=== PATIENT | male | born 1995 | race Caucasian/White ===

== ENCOUNTER 2016-05-02 19:25 | Emergency (ER) | payer BC ==
[~2016-05-02] VITALS: Ht 185.4 cm; Wt 90.9 kg
[~2016-05-02 19:25] MED LIST: ZOFRAN ODT4 MG PO
[2016-05-02 19:27] VITALS: TEMP 98.7
[2016-05-02] MEDS ORDERED: HUMALOG100 U/ML SQ (19:35)
[2016-05-02 20:29] LABS: BASO % 0.1 % (0.0-2.0); GRAN # 9.6 (1.4-6.5); GRAN % 89.1 % (42.2-75.2); HEMATOCRIT 47.3 % (42.0-52.0); HEMOGLOBIN 16.5 g/dl (13.5-18.0); LYMPH # 0.7 (1.2-3.4); LYMPH % 6.8 % (20.0-51.0); MEAN CELL VOLUME 90 fl (80.0-100.0); MEAN CORPUSCULAR HEMOGLOBIN 32 pg (27.0-31.0); MEAN CORPUSCULAR HGB CONC 35 g/dl (33.0-37.0); MEAN PLATELET VOLUME 10.8 fl (7.4-10.4); MONO # 0.4 (0.1-0.6); MONO % 3.7 % (1.7-9.3); PLATELET COUNT 189 K/mm3 (130-400); RED BLOOD COUNT 5.24 M/mm3 (4.20-5.60); REDCELL DISTRIBUTION WIDTH-CV 11.9 % (11.5-14.5); WHITE BLOOD COUNT 10.8 K/mm3 (4.8-10.8)
[2016-05-02 20:39] LABS: ADJUSTED CALCIUM 8.6 mg/dL (8.4-10.2); ALBUMIN 4.9 gm/dL (3.5-5.0); BILIRUBIN,TOTAL 0.8 mg/dL (0.0-1.0); CALCIUM 9.3 mg/dL (8.4-10.2); CREATININE, serum 0.95 mg/dL (0.66-1.25); MAGNESIUM 2.1 mg/dL (1.6-2.3); PHOSPHOROUS 4.5 mg/dL (2.5-4.5); POTASSIUM 4.1 mmol/L (3.4-5.0); TOTAL PROTEIN 8.4 gm/dL (6.4-8.2)
[2016-05-02 21:43] VITALS: BP 138/78; PULSE 80
== END 2016-05-02 21:44 | disposition left against medical advice (07) ==
LOC: COL.ER 19:25
PROVIDERS: Emergency Medicine
DX: E10.649 Type 1 diabetes mellitus with hypoglycemia without coma (principal); Z79.4 Long term (current) use of insulin; Z96.41 Presence of insulin pump (external) (internal); F10.120 Alcohol abuse with intoxication, uncomplicated; Y90.8 Blood alcohol level of 240 mg/100 ml or more; Z53.21 Procedure and treatment not carried out due to patient leaving prior to being seen by health care provider